=== PATIENT | female | born 1980 | race Caucasian/White ===

== ENCOUNTER 2016-10-02 07:23 | Day surgery (SDC) | payer BC ==
[2016-10-01 13:35] VITALS: Ht 170.2 cm; Wt 68.0 kg
[2016-10-02] VITALS (11 sets, daily range): BP systolic 104–127; BP diastolic 62–79; PULSE 72–82; RESP 14–24
[~2016-10-02] VITALS: Ht 170.2 cm; Wt 68.0 kg
--- NOTE | 2016-10-02 07:43 | HPN ---
Date/Time of Note Date/Time of Note DATE: 10/02/16 TIME: 07:43 Interval H&P Admission Note Pt. seen H&P reviewed: No system changes YURI WOODALL MD Oct 02, 2016 07:43
[2016-10-02] MEDS ORDERED: LIDOCAINE 2% (SDV) 5 ML INJ ONE (08:18)
[2016-10-02] MEDS ORDERED: PROPOFOL 20 ML ONE (08:18)
[2016-10-02] MEDS ORDERED: MIDAZOLAM 1 MG/ML 2 ML INJ ONE (08:19)
[2016-10-02] MEDS ORDERED: FENTAnyl 50 MCG/ML VIAL ONE (08:19)
[2016-10-02] MEDS ORDERED: HYDROmorphONE (0.2 MG/ML) 10ML SYG IV PRN (08:30)
[2016-10-02] MEDS ORDERED: ONDANSETRON 4 MG INJ IV PRN ×2 (08:30→10:00)
[2016-10-02] MEDS ORDERED: PROCHLORPERAZINE 10 MG INJ IV PRN (08:30)
[2016-10-02] MEDS ORDERED: FENTAnyl 50 MCG/ML VIAL IV PRN (08:30)
[2016-10-02] MEDS ORDERED: OXYCODONE/ACETAMINOPHEN (5/325) TAB PO PRN ×4 (08:30→10:00)
[2016-10-02] MEDS ORDERED: DIPHENHYDRAMINE 50 MG INJ IV PRN (08:30)
[2016-10-02] MEDS ORDERED: MEPERIDINE 25 MG INJ IV PRN (08:30)
[2016-10-02] MEDS ORDERED: BUSP15TA3 PO (08:49)
[2016-10-02] MEDS ORDERED: BUPIVACAINE 0.25%/EPI (SDV) 30 ML INJ ONE (08:56)
[2016-10-02] MEDS ORDERED: CEFAZOLIN 1 GM INJ ONE ×2 (09:15)
[2016-10-02] MEDS ORDERED: METOCLOPRAMIDE 10 MG INJ ONE (09:17)
[2016-10-02] MEDS ORDERED: ONDANSETRON 4 MG INJ ONE (09:17)
[2016-10-02] MEDS ORDERED: KETOROLAC 30 MG INJ ONE (09:19)
[2016-10-02] MEDS ORDERED: BUPIVACAINE 0.25%/EPI (SDV) 30 ML INJ INJ ONE (09:27)
[2016-10-02] MEDS ORDERED: morphine 2 MG INJ IV PRN (10:00)
--- NOTE | 2016-10-02 10:32 | OPR ---
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 PROCEDURE: 1. Excision. 2. Closure of fascia. POSTOPERATIVE DIAGNOSIS: Probable endometrioma. Final pathology pending. SURGEON: Yuri Johnson MD ANESTHESIA: General. ANESTHESIOLOGIST: Dr. Hill OPERATIVE REPORT: After satisfactory general anesthesia was achieved, the abdomen was prepped and d raped in the usual fashion. A 4-cm transverse skin ellipse was marked encompassing the center of th e Pfannenstiel scar and its underlying 3-cm mass. The skin and subcutaneous tissues were divided ar ound this mass circumferentially, down to the level of the fascia. The mass involved the anterior f ascia. This was excised in continuity with the mass, which was then oriented with suture, short sut ure superior, long suture left. The specimen was submitted. The fascia was closed with interrupted #1 Vicryl suture. The subcutaneous was closed with interrupted 3-0 Vicryl suture and infiltrated w ith 30 mL of 0.25% Marcaine with epinephrine. The skin was closed with kathy. Operative blood lo ss was less than 10 mL. Sponge and needle counts were reported as correct x2. DISPOSITION: The patient tolerated the procedure well and without incident or complication. Dictated By: YURI OBRIEN/DEBRA Conf#: [id number] DID#: [id number] CC: CARL ALCANTARA M.D.;*EndCC*
== END 2016-10-02 12:25 | disposition home or self-care (01) ==
LOC: SDS 07:23
PROVIDERS: ATTEND Surgery
DX: N80.6 Endometriosis in cutaneous scar (principal)
CPT/HCPCS: 11406; 88307; J0690; J1885; J2175; J2250; J2270; J2405; J2765; J3010; Z7512; Z7610